=== PATIENT | female | born 1970 | race Caucasian/White ===

== ENCOUNTER → 2017-10-09 | Outpatient (CLI) | payer BC ==
[~2017-10-09] MED LIST: ALDACTONE25 MG PO; BENTYL 10 MG CA10 M1 PO; CARAFATE 1 GM TA1 GM PO; MINOCYCLINE 5050 M1 PO; NORCO 5-325 TA1 EACH PO; OMEPRAZOLE20 M2 PO; PHENERGAN 25 MG25 M1 PO; SUMATRIPTAN20 MG NS
== END ==
LOC: M.RAD 09:13
DX: Z12.31 Encounter for screening mammogram for malignant neoplasm of breast (principal)

== ENCOUNTER 2019-02-14 22:49 | Emergency (ER) | payer BC ==
[~2019-02-14] VITALS: Ht 162.6 cm; Wt 68.0 kg
[2019-02-14 23:07] LABS: ABSOLUTE LYMPHOCYTES 1.7 thou/uL (0.8-5.3); ABSOLUTE MONOCYTES 0.4 thou/uL (0.0-1.2); HEMOGLOBIN 13.4 gm/dL (12.0-15.0); MONOCYTES 8.7 %; NUCLEATED RBCS 0 /100WBC
[2019-02-14 23:13] LABS: ABSOLUTE BASOPHILS 0.1 thou/uL (0.0-0.2); ABSOLUTE EOSINOPHILS 0.4 thou/uL (0.0-0.7); ABSOLUTE NEUTROPHILS 2.5 thou/uL (1.6-8.1); BASOPHILS 1.1 %; EOSINOPHILS 7.8 %; HEMATOCRIT 39.1 % (37.0-47.0); LYMPHOCYTES 33.4 %; MCH 29.2 pg (26.0-34.0); MCHC 34.3 g/dL (28.0-37.0); MCV 85.1 fL (80.0-100.0); PLATELET COUNT* 221 thou/uL (150-400); RDW-CV 13.1 % (10.5-14.5)
[2019-02-14 23:15] LABS: PROTIME 10.1 Seconds (9.20-11.50)
[2019-02-14 23:21] LABS: CALCIUM 8.5 mg/dL (8.5-10.1); CREATININE 0.7 mg/dL (0.6-1.3); POTASSIUM 3.6 mmol/L (3.5-5.1)
[2019-02-14 23:32] LABS: ALBUMIN 3.7 g/dL (3.4-5.0); TOTAL BILIRUBIN 0.6 mg/dL (<0.1-1.0); TOTAL PROTEIN 7.1 g/dL (6.4-8.2)
[2019-02-15] MEDS ORDERED: PRILOSEC OTC20 MG PO (01:06)
[2019-02-15] MEDS ORDERED: CARAFATE 1 GM TA1 GM PO (01:06)
[2019-02-15 02:15] VITALS: BP 166/82
--- NOTE | 2019-02-16 12:17 | EKG ---
[place] [address] ELECTROCARDIOGRAM REPORT Name: SILVINO EASTMAN [id number] Admission: 02/14/19 Attend Phys: Discharge: 02/15/19 Date of : 68 Report #: [id number] THIS REPORT FOR: //name// [facility] ED Test Date: 2019-02-14 Test Time: 22:55:47 Pat Name: SILVINO EASTMAN Department: Room: Gender: F [employer] In[employer]: [place] : [id number] Requested By: Marisa Troncoso Order Number: [id number] MD: Florentino Cueto Measurements Intervals [place] Rate: 82 P: 68 MT: 142 QRS: 54 QRSD: 80 T: 23 QT: 378 QTc: 442 Interpretive Statements Sinus rhythm No previous ECG available for comparison Electronically Signed On 02-16-2019 12:17:00 [employer] by Florentino Cueto [email or web address] <ELECTRONICALLY SIGNED> By: Carlos Cueto MD, [facility] 02/16/19 1217 2255 [id number] Carlos Cueto MD, FAC /EPI
== END 2019-02-15 02:15 | disposition home or self-care (01) ==
LOC: M.ERS 22:49
PROVIDERS: Emergency Medicine
DX: R07.89 Other chest pain (principal); I10 Essential (primary) hypertension; Z98.51 Tubal ligation status; Z88.5 Allergy status to narcotic agent